=== PATIENT | female | born 1945 ===

== ENCOUNTER → 2019-01-04 | Day surgery (SDC) | payer OTHER ==
[~2019-01-04] MED LIST: ACID REDUCER20 M1; COLACE100 MG PO; GLIMEPIRIDE2 MG; GLUCOTROL10 MG; LIPITOR40 MG; NEURONTIN300 MG; NORVASC2.5 M1; ULTRACET PO; ZESTRIL2.5 MG
== END | disposition home or self-care (01) ==
LOC: ADM 12-31 08:45 → EDBD 08:45 → CIR.AMB 08:45
DX: D12.9 Benign neoplasm of anus and anal canal (principal); K64.8 Other hemorrhoids